=== PATIENT | male | born 1945 | race Caucasian/White ===

== ENCOUNTER → 2019-03-23 | Outpatient (CLI) | payer MEDICARE | END | disposition home or self-care (01) | LOC: RAH 13:48 | PROVIDERS: ATTEND Dermatology | DX: N63.20 Unspecified lump in the left breast, unspecified quadrant (principal); R59.0 Localized enlarged lymph nodes | CPT/HCPCS: 76641; 77066 ==

== ENCOUNTER → 2019-04-10 | Outpatient (CLI) | payer MEDICARE ==
[2019-04-10 08:42] LABS: INR 1.03 (0.85-1.15); PARTIAL THROMBOPLASTIN TIME 27.1 SEC (26.3-35.5); PROTHROMBIN TIME 10.8 SEC (9.6-11.6)
--- NOTE | 2019-04-10 09:10 | NUR ---
U/S GD LEFT BREAST BX PROCEDURE PERFORMED BY DR YANG. PUNCTURE SITE LEFT BREAST AND PATIENT TOLERATED PROCEDURE WELL. SPECIMEN X 4 COLLECTED AND SENT TO LAB. END OF PROCEDURE AT 0915. TISSUE MARKER PLACED. BIOPSY NEEDLE REMOVED AND DRESSING APPLIED. NO BLEEDING NOTED. DISCHARGE INSTRUCTIONS GIVEN TO PATIENT AND VERBALIZED UNDERSTANDING. DISCHARGED VIA AMBULATORY, STABLE, AAO X3 WITH NO C/O PAIN.
== END | disposition home or self-care (01) ==
LOC: RAH 07:38
PROVIDERS: ATTEND Internal Medicine Hematology & Oncology
DX: C50.022 Malignant neoplasm of nipple and areola, left male breast (principal); C61 Malignant neoplasm of prostate; Z88.0 Allergy status to penicillin
CPT/HCPCS: 19083; 36415; 85610; 85730; 88305; A4215 ×3; 76942

== ENCOUNTER → 2019-04-24 | Outpatient (CLI) | payer MEDICARE | END | disposition home or self-care (01) | LOC: RAH 12:51 | PROVIDERS: ATTEND Internal Medicine Hematology & Oncology | DX: C50.122 Malignant neoplasm of central portion of left male breast (principal); C61 Malignant neoplasm of prostate; M47.815 Spondylosis without myelopathy or radiculopathy, thoracolumbar region | CPT/HCPCS: 78306; A9503 ==

== ENCOUNTER → 2022-04-01 | Outpatient (CLI) | payer MEDICARE | END | disposition home or self-care (01) | LOC: RAH 12:35 | PROVIDERS: ATTEND Internal Medicine Hematology & Oncology | DX: C61 Malignant neoplasm of prostate (principal); N63.20 Unspecified lump in the left breast, unspecified quadrant; C50.122 Malignant neoplasm of central portion of left male breast; Z17.0 Estrogen receptor positive status [ER+]; E86.0 Dehydration; D70.1 Agranulocytosis secondary to cancer chemotherapy; M89.9 Disorder of bone, unspecified; M81.0 Age-related osteoporosis without current pathological fracture | CPT/HCPCS: 78306; A9503 ==